=== PATIENT | male | born 1945 | race Caucasian/White ===

== ENCOUNTER → 2017-04-09 | Outpatient (CLI) | payer OTHER | LOC: BMCIMAGING 10:10 | PROVIDERS: ATTEND Internal Medicine | DX: J98.4 Other disorders of lung (principal); J98.11 Atelectasis ==

== ENCOUNTER → 2018-04-18 | Outpatient (CLI) | payer OTHER | LOC: GIMAGING 14:15 | PROVIDERS: ATTEND Nurse Practitioner Family | DX: R05 Cough (principal); R91.8 Other nonspecific abnormal finding of lung field | CPT/HCPCS: 71046-PO ==

== ENCOUNTER → 2018-04-23 | Outpatient (CLI) | payer OTHER | LOC: FIMAGING 11:03 | PROVIDERS: ATTEND Internal Medicine | DX: J98.4 Other disorders of lung (principal) ==